=== PATIENT | female | born 1970 | race Caucasian/White ===

== ENCOUNTER 2017-12-22 08:10 | Observation (INO) ==
[2017-12-22] MEDS ORDERED: Sodium Chlor 0.9% Inj 500 ML IV.SIG SCH (09:00)
[2017-12-22] MEDS ORDERED: Chlorhexidine Gluconate 2% 1 Pack (2 Cloths) TOPICAL SCH (09:00)
[2017-12-22] MEDS ORDERED: Metoprolol Tartrate 25 MG Tablet PO SCH (09:00)
[2017-12-22] MEDS ORDERED: Heparin - SQ 10,000 UNITS/ML Vial SQ SCH (09:30)
[2017-12-22 10:05] VITALS: O2SAT 100
[2017-12-22] MEDS ORDERED: Ketorolac Inj 30 MG/ML (IVP) Vial IV.PUSH ONE (10:06)
[2017-12-22] MEDS ORDERED: Lidocaine PF 1% Inj 5 ML Syringe INFILTRATN ONE (10:06)
[2017-12-22] MEDS ORDERED: Normosol-R pH 7.4 Inj 1,000 ML IV.CONT ONE (10:06)
[2017-12-22] MEDS ORDERED: Phenylephrine/NS 1000 MCG/10ML Syringe IV.PUSH ONE (10:06)
[2017-12-22] MEDS ORDERED: Sugammadex Inj 200 MG/2 ML Vial IV.PUSH ONE (11:07)
[2017-12-22] MEDS ORDERED: Famotidine PF Inj 20 MG/2 ML Vial ONE (11:07)
[2017-12-22] MEDS ORDERED: Lidocaine 1%/Epinephrine 1:100,000 Inj 20 ML Vial INFILTRATN ONE (12:46)
[2017-12-22] MEDS ORDERED: Methylene Blue Inj 10 MG/ML Vial IV.PUSH ONE (13:47)
[2017-12-22] MEDS ORDERED: LORazepam 0.5 MG Tablet PO PRN (15:02)
[2017-12-22] MEDS ORDERED: KCL 20 mEq/D5W/NaCl 0.45% Inj 1,000 ML ONE (15:15)
[2017-12-22] MEDS ORDERED: fentaNYL Citrate Inj 100 MCG/2 ML Ampul ONE ×2 (15:38)
[2017-12-22] MEDS: KCL 20 mEq/D5W/NaCl 0.45% Inj 1,000 ML IV.CONT SCH ×2 (16:17→23:43)
--- NOTE | 2017-12-22 16:53 | MP ---
cc: Janis Crook MD,Philip Farah,Nik LORENZO DATE OF OPERATION: 12/22/2017 DATE OF PROCEDURE: 12/22/2017. PREOPERATIVE DIAGNOSES: 1. Premenopausal breast cancer. 2. Desires therapeutic and prophylactic gynecologic surgery. POSTOPERATIVE DIAGNOSES: 1. Premenopausal breast cancer. 2. Desires therapeutic and prophylactic gynecologic surgery. 3. Single prominent left pelvic lymph node. PROCEDURE: Robotic-assisted laparoscopic hysterectomy, bilateral salpingo-oophorectomy and biopsy of left pelvic lymph node. SURGEON: Janis Crook. CAB STATION ATTENDANT: Eze assistant mechanic. ANESTHESIA: General endotracheal anesthesia. ESTIMATED BLOOD LOSS: 150 mL IV FLUIDS: 1700 mL URINE OUTPUT: 400 mL HISTORY: A 47-year-old female with history of premenopausal breast cancer, has been counseled regarding the potential therapeutic and preventative benefits of removing the tubes and ovaries. Also counseled regarding pros and cons of hysterectomy and she is in favor of definitive surgery and requests a complete hysterectomy and bilateral salpingo-oophorectomy. She was seen in the preop holding area where the findings were again reviewed, the steps recommended are discussed. Questions were asked and answered. She expressed good understanding and would like to move forward with surgery. FINDINGS: On exam under anesthesia, there is a markedly narrowed pelvic outlet with what appears to be an intact hymen. Cervix is small. There was some mobility to the uterus and cervix. There was no visible or palpable neoplastic change to the uterus and cervix. No parametrial nodularity. No grossly visible abnormalities on the cervix and close inspection reveals no lesions. The pelvic outlet is such that even a small V-Care manipulator cannot be placed adequately. The green cap of the V-Care manipulator had to be reduced in its diameter to allow positioning in the vagina. The second cap was also reduced in size and with that associated some bleeding from mucosal tears that were subsequently repaired. In the peritoneal cavity, the uterus was sounded to approximately 6-7 cm. The tubes and ovaries grossly appeared normal. There were no peritoneal implants. The liver and diaphragm edges were smooth. The omentum, large and small bowel and adjacent mesentery grossly appeared normal, without implants. There was a single prominent lymph node in the mid-portion of the left external iliac vessels of uncertain significance. The remainder of the lymphatic basins were without prominent or abnormal-appearing lymph nodes. The paraaortic region was without prominent or abnormal-appearing lymph nodes. DESCRIPTION OF PROCEDURE: She was taken to the operating room and placed in dorsal lithotomy position after general endotracheal anesthesia was administered. A timeout was undertaken. She was identified by site recognition and hospital ID bracelet and the proposed procedure was reviewed and confirmed. She was carefully positioned in padded Patrick stirrups. Her arms were padded and secured to the sides. She was further secured to the operating table with eggcrate padding and tape in across chest, over the shoulder fashion. All sites were noted to be properly aligned with no malalignment or pressure points. She was prepped and draped in sterile fashion, placed in lithotomy position. Exam under anesthesia was performed with findings as described above. The cervix was grasped. The cavity was sounded. The cervix was stenotic with atrophic changes and a small V-Care was inserted. The anatomical findings were such that the initial attempts to place the small V-Care caps were unsuccessful and led to some bleeding, so the caps were reduced in size and placed and secured to the cervix in the usual fashion. [place] catheter was placed in the bladder. She was returned to low lithotomy position. Change of sterile gloves was undertaken. We confirmed that an orogastric tube was in the stomach on suction. With manual elevation of the abdominal wall and direct laparoscopic visualization, a 5 mm cannula was placed in the left upper quadrant. Carbon dioxide gas was insufflated. Under laparoscopic visualization, an 8 mm cannula was placed in the right upper quadrant and left lower quadrant and a 12 mm cannula placed in the midline. The original 5 mm was exchanged for an 8 mm cannula. She was placed in Trendelenburg position. The anatomy was explored with findings as described above. The small bowel was folded back on its mesenteric root. Three Ray-Victor Hugo sponges were placed around the root of the small bowel mesentery. The V-Care was noted to be on the verge of a perforation through the ventral lower uterine segment, so I returned to the lower bedside where the balloon was deflated, the V-Care was withdrawn and under laparoscopic guidance, was able to be more satisfactorily placed within the uterine cavity that helped facilitate mobility. Change of sterile gloves was undertaken. The robotic system was docked in the usual fashion. Monopolar scissors, fenestrated bipolar forceps and ProGrasp manipulators were placed in arms #1, 2, and 3 respectively and I took my place at the surgeon's console. The right round ligament was isolated, cauterized and transected. The anterior and posterior leaves of the broad ligament were opened. The right ureter was identified. The right infundibulopelvic ligament was isolated. The intervening peritoneum was opened. Infundibulopelvic ligament was isolated to the level of the pelvic brim where it was cauterized and transected. Posterior peritoneum was opened along the right side of the uterus and cervix and the right vesicouterine peritoneum dissected off the lower uterine segment and cervix. The right uterine vessels were skeletonized, cauterized and transected as were the cardinal, paracervical and uterosacral ligaments. Adhesions were taken down on the left side to mobilize the colon. The left round ligament was isolated, cauterized and transected. The anterior and posterior leaves of the broad ligament were opened. The left ureter was identified. The left infundibulopelvic ligament was isolated. The intervening peritoneum was opened and the infundibulopelvic ligament was isolated to the level of the pelvic brim where it was cauterized and transected. Posterior peritoneum was opened along the left side of the uterus and cervix and the left vesicouterine peritoneum dissected off the lower uterine segment and cervix. The left uterine vessels were isolated, cauterized and transected as were the cardinal, paracervical and uterosacral ligaments. Colpotomy was performed following the cap of the V-Care manipulator, the cervix from the upper vagina and, due to her narrow pelvic outlet, I left the surgeon's console to help facilitate specimen delivery. With downward traction and repositioning, the specimen was able to be delivered transvaginally which included uterus, cervix, tubes and ovaries and a pneumo-occluder balloon was placed in the vagina to maintain pneumoperitoneum. I turned to the surgeon's console. Instruments 1 and 3 were exchanged for needle drivers as a 0 Vicryl suture was introduced. The vaginal cuff was closed starting at the left corner with full thickness closure including the posterior uterosacral ligament and posterior peritoneum, tied via instrument tie. The closure was held on traction as a full thickness continuous running closure was carried across the vaginal apex to the contralateral corner were it was similarly fixed, secured, tied and the needle was cut and removed. The pelvis was thoroughly irrigated. The integrity of the bladder was confirmed by filling the bladder with saline dyed with methylene blue; it distended nicely under pressure. There was an adequate margin between the vaginal cuff suture line and the edge of the bladder. There were no defects in the bladder, good peristalsis of ureters bilaterally and the bladder was drained. Anatomy was again inspected with a single prominent lymph node noted in the left pelvis. Instruments were reverted to the original instrument setup as the lymph node was removed with bipolar cautery and sharp dissection circumferentially and placed in the right paracolic gutter for later retrieval. The remaining lymph node basins were inspected. There were no abnormalities. It was felt that all reasonable surgical objectives had been completed. Accordingly, the robotic instruments were removed. The robotic system was disengaged from the operative field. I reentered the bedside under sterile condition. Using the 12 mm cannula, the EndoCatch bag was used to capture the lymph nodes that had been removed from the left pelvis and then each of the 3 Ray-Victor Hugo sponges were removed individually. Each were inspected and noted to be removed in their entirety. Visual inspection confirmed there were no remaining foreign objects in the peritoneal cavity. To assist in continued hemostasis, hemostatic Ann-Marie powder was placed across the vaginal cuff in left pelvis. The 12 mm fascial defect was closed with interrupted 0 Vicryl sutures using a needle pass fascial closure apparatus and they were tied securely which rendered the fascia completely airtight and hemostatic. The remaining cannulas were withdrawn. Carbon dioxide gas was removed. 3-0 Vicryl subcutaneous, 3-0 Vicryl subcuticular and Steri-Strips were used to close these incisions. She was returned to dorsal lithotomy position. Pelvic exam confirmed that the vaginal cuff was well supported and hemostatic. The vaginal mucosa appeared normal. There were, however, several lacerations at the introitus and the hymenal ring. These were rendered hemostatic, reapproximated with interrupted [id number] 3-0 Vicryl sutures. Reinspection confirmed hemostasis and, to assist in continued hemostasis, Surgicel SNoW 2 x 4 piece of hemostatic agent was placed in the vaginal canal. Otherwise, there were no remaining foreign objects in the vagina. Final counts were correct. She was returned to dorsal supine position and was pending reversal of anesthesia, when I left the operating room to precede her to the postanesthesia care unit. MD FAINA Holliday , 04:10 PM , 04:30 PM
[2017-12-22] MEDS: Ketorolac Inj 30 MG/ML (IVP) Vial IV.PUSH SCH (20:09)
[2017-12-23] MEDS: Ketorolac Inj 30 MG/ML (IVP) Vial IV.PUSH SCH (04:13)
[2017-12-23 08:27] LABS: Baso % (Auto) 0.1 % (0.0-2.0); Eos % (Auto) 0.1 % (0.0-4.0); Hematocrit 38.7 % (35.0-46.0); Hemoglobin 12.6 gm/dL (11.6-15.3); Lymph # (Auto) 1.2 th/mm3 (1.0-4.8); Lymph % (Auto) 8.7 % (9.0-44.0); Mean Corpuscular HGB Conc 32.6 % (32.0-36.0); Mean Corpuscular Hemoglobin 30.3 pg (27.0-34.0); Mean Corpuscular Volume 92.8 fL (80.0-100.0); Mean Platelet Volume 8.1 fL (7.0-11.0); Mono # (Auto) 0.9 th/mm3 (0.0-0.9); Mono % (Auto) 6.7 % (0.0-8.0); Neut # (Auto) 11.7 th/mm3 (1.8-7.7); Neut % (Auto) 84.4 % (16.0-70.0); Platelet Count 283 th/mm3 (150-450); Red Blood Count 4.17 mil/mm3 (4.00-5.30); Red Cell Distribution Width 14.6 % (11.6-17.2); White Blood Count 13.9 th/mm3 (4.0-11.0)
[2017-12-23 08:37] LABS: Anion Gap 7 meq/L (5-15); Blood Urea Nitrogen 8 mg/dL (7-18); Calcium 7.7 mg/dL (8.5-10.1); Chloride 110 meq/L (98-107); Glomerular Filtration Rate Greater Than 89 mL/min (>89); Glucose,Random 121 mg/dL (74-106); Potassium 4.6 meq/L (3.5-5.1); Sodium 141 meq/L (136-145)
[2017-12-23 22:11] VITALS: BP 108/58; PULSE 75; RESP 18; TEMP 98.5
== END 2017-12-23 10:07 | disposition home or self-care (01) ==
LOC: HSDC 08:10 → HCIN 08:10
PROVIDERS: ADMIT Obstetrics & Gynecology Gynecologic Oncology; ATTEND Obstetrics & Gynecology Gynecologic Oncology